=== PATIENT | female | born 1990 | race African-American/Black ===

== ENCOUNTER 2016-09-21 13:11 | Emergency (ER) | payer OTHER, SELFPAY ==
[~2016-09-21 13:11] MED LIST: Sodium Chloride 0.9% 100 ML BAG ONE
[2016-09-21] MEDS ORDERED: Iopamidol 370 76% 125 ML VIAL FS ONE (13:18)
[2016-09-21] MEDS ORDERED: Sodium Chloride 0.9% 100 ML BAG ONE (13:18)
[2016-09-21] MEDS ORDERED: methylPREDNISolone Sod Succ/PF 125 MG/2 ML VIAL ONE (14:18)
[2016-09-21] MEDS ORDERED: Piperacillin/Tazobactam 4.5 GM VIAL ONE (14:18)
[2016-09-21 14:56] LABS: ALT (SGPT) 11 U/L (8-55); AST (SGOT) 12 U/L (5-34); Albumin 3.7 g/dL (3.5-5.0); Alkaline Phosphatase 75 U/L (40-150); Anion Gap 12 mmol/L (10-20); BUN (Urea Nitrogen) 5 mg/dL (7.0-18.7); Bilirubin, Total 0.4 mg/dL (0.2-1.2); Calc. Creatinine Clearance 0 mL/min (70-130); Calcium 9.2 mg/dL (7.8-10.44); Carbon Dioxide 23 mmol/L (22-29); Chloride 107 mmol/L (98-107); Estimated GFR-MDRD Greater than 90; Globulin 3.9 g/dL (2.4-3.5); Glucose 107 mg/dL (70-105); Protein, Total 7.6 g/dL (6.0-8.3); Sodium 139 mmol/L (136-145)
[2016-09-21 15:13] LABS: Hemoglobin 11.6 g/dL (12.0-16.0); Mean Corpuscular Hemoglobin 28.7 pg (27.0-31.0); Mean Corpuscular Volume 86.9 fl (81.0-99.0); Mean Platelet Volume 9.6 fL (7.4-10.4); Platelet Count 295 thou/uL (130-400); RBC Distribution Width 12.3 % (11.5-14.5); Red Blood Cell (RBC) Count 4.05 mill/uL (4.20-5.40); White Blood Cell (WBC) Count 11.7 thou/uL (4.8-10.8)
[2016-09-21 15:14] LABS: Lymphocytes 20 % (21-51); Monocytes 5 % (0-10); Neutrophil 75 % (42-75)
[2016-09-21] MEDS ORDERED: Potassium Chloride 20 MEQ TAB ONE (15:17)
--- NOTE | 2016-09-21 15:18 | RAD ---
CHEST PA AND LATERAL: History: 26-year-old female with cough. FINDINGS: Patchy bilateral alveolar and pneumonia infiltrates noted in the right and left lower lobes, evidenc e for bibasilar pneumonia. Heart size is normal. The remainder of the lungs are clear. IMPRESSION: Bibasilar pneumonia. POS: [facility]
[2016-09-21] MEDS ORDERED: NS 0.9% w/ 20 MEQ KCL 1,000 ML ONE (17:10)
[2016-09-21] MEDS ORDERED: Potassium Chloride 20 MEQ/100 ML PREMIX BAG ONE (17:10)
--- NOTE | 2016-09-21 17:58 | CT ---
CT ANGIOGRAM OF THE CHEST WITH CONTRAST: History: Cough that started two weeks ago. Comparison: Chest radiograph, same day. Technique: CT angiogram of the chest was performed after the intravenous administration of contrast. 3D rendering provided. FINDINGS: No segmental pulmonary arterial filling defect. The exam is limited due to motion artifact and timin g of the bolus. Heart size is unremarkable. No pericardial effusion. No aneurysmal dilatation of the aorta. There is tracheobronchomegaly. There are numerous opacities in the right middle lobe, bilateral lowe r lobes, and lingula suggesting a multifocal pneumonia, aspiration is within the differential. No adenopathy of the chest. Upper abdomen demonstrates some cholelithiasis. The skeleton is unremarkable. IMPRESSION: 1. Tracheobronchomegaly along with airspace opacities in both lower lobes, right middle lobe and ezequiel gula. Findings suggest multifocal bronchial pneumonia with aspiration. 2. Extremely limited exam for embolism although there is no proximal segmental pulmonary arterial fi lling defect. POS: [facility]
== END 2016-09-21 17:35 | disposition short-term general hospital (02) ==
LOC: MADERS 13:11
DX: J18.9 Pneumonia, unspecified organism (principal); E87.6 Hypokalemia
CPT/HCPCS: 36415; 71020; 71275; 80053; 83880; 85025; 85379; 87040; 94640; 96365; 96367; 96375; J2543; J2930; J3370; J3480; J7050; J7620

== ENCOUNTER 2017-08-01 21:58 | Emergency (ER) | payer OTHER, SELFPAY ==
[~2017-08-01 21:58] MED LIST changes: +Iopamidol 370 76% 100 ML VIAL ONE; +Sodium Chloride 0.9% 1,000 ML BAG ONE; -Sodium Chloride 0.9% 100 ML BAG ONE
[2017-08-01] MEDS ORDERED: Famotidine In NaCl 20 mg/50 ml Premix Bag ONE (22:39)
[2017-08-01] MEDS ORDERED: Ondansetron HCl/PF 4 MG/2 ML Vial ONE (22:39)
[2017-08-01] MEDS ORDERED: Fentanyl 100 MCG/2 ML VIAL ONE (22:39)
[2017-08-01 22:54] LABS: Bilirubin Negative (Negative); Blood, Urine Negative (Negative); Glucose, Urine (Dipstick) Negative (Negative); Leukocyte Negative (Negative); Nitrite Negative (Negative); Protein, Urine (Dipstick) Negative (Neg-Trace); Urobilinogen 0.2 mg/dL (0.2-1.0); pH, Urine 5.5 (5.0-9.0)
[2017-08-01 23:04] LABS: Hemoglobin 13.6 g/dL (12.0-16.0); Mean Corpuscular HGB CONC 34.2 g/dL (32.0-36.0); Mean Corpuscular Hemoglobin 30.3 pg (27.0-31.0); Mean Corpuscular Volume 88.8 fl (81.0-99.0); Mean Platelet Volume 7.9 fL (7.4-10.4); Platelet Count 341 thou/uL (130-400); RBC Distribution Width 12.1 % (11.5-14.5); Red Blood Cell (RBC) Count 4.47 mill/uL (4.20-5.40); White Blood Cell (WBC) Count 7.6 thou/uL (4.8-10.8)
[2017-08-01 23:06] LABS: Clarity Hazy (Clear); Pregnancy Test - Urine (BHCG) Negative (Negative); Specific Gravity, Urine 1.029 (1.002-1.036)
[2017-08-01 23:07] LABS: Band 4 % (5-11); MDiff Complete? YES; Neutrophil 51 % (42-75)
[2017-08-01 23:07] LABS: Pregu Control Background? CLEAR/WHITE (CLR/WHITE); Pregu Control Bar Appear? YES (CONTROL BAR); Specific Gravity 1.029 (1.002-1.036)
[2017-08-01 23:08] LABS: Lymphocytes 37 % (21-51); Monocytes 8 % (0-10)
[2017-08-01 23:09] LABS: Anion Gap 13 mmol/L (10-20); BUN (Urea Nitrogen) 10 mg/dL (7.0-18.7); Calc. Creatinine Clearance 0 mL/min (70-130); Calcium 9.2 mg/dL (7.8-10.44); Carbon Dioxide 23 mmol/L (22-29); Chloride 108 mmol/L (98-107); Estimated GFR-MDRD Greater than 90; Glucose 109 mg/dL (70-105); Potassium 3.9 mmol/L (3.5-5.1); Sodium 140 mmol/L (136-145)
--- NOTE | 2017-08-02 08:53 | CT ---
CT ABDOMEN AND PELVIS WITH IV CONTRAST: Date: 08/01/17 HISTORY: Right lower quadrant abdominal pain. COMPARISON: 09/23/09. FINDINGS: The lung bases, liver, spleen, pancreas, bilateral adrenal glands, kidneys, abdominal aorta, and opac ified small bowel demonstrate a normal CT appearance. There are calcifications seen in the gallbladder, which were not present on the prior exam, consisten t with cholelithiasis. The largest gallbladder calculus measures 1.8 cm. The appendix is visualized and is normal in caliber. A T-shaped intrauterine contraceptive device is noted in place. There is a large left adnexal cystic structure measuring 5.1 cm, which may represent a large left ova jo cyst. The right ovary has a normal CT appearance. There is a trace amount of free fluid in the pelvis, whic h is probably physiologic in origin. The urinary bladder is incompletely distended. There is mass effect on the urinary bladder due to a l arge left adnexal cystic structure. IMPRESSION: 1. Large left adnexal cystic structure which may represent a large left ovarian cyst. However, given the large size, pelvic ultrasound may be helpful for further evaluation. 2. No CT evidence of appendicitis. 3. Cholelithiasis. POS: [facility]
== END 2017-08-02 00:40 | disposition home or self-care (01) ==
LOC: MADERS 21:58
DX: K80.20 Calculus of gallbladder without cholecystitis without obstruction (principal); Z79.899 Other long term (current) drug therapy
CPT/HCPCS: 36415; 74177; 80048; 81003; 81025; 82150; 85025; 96361; 96374; 96375; J2405; J3010; J7050

== ENCOUNTER 2017-08-10 08:30 | Outpatient (CLI) | payer OTHER ==
--- NOTE | 2017-08-10 11:30 | ULT ---
TRANSABDOMINAL AND TRANSVAGINAL PELVIC ULTRASOUND: Date: 08/10/17 INDICATION: History of left-sided ovarian cyst with left-sided pelvic pain. COMPARISON: Prior CT of the abdomen and pelvis dated 08/01/17. TECHNIQUE: Hill scale, color Doppler, and vascular duplex with spectral analysis was performed of the pelvis via transabdominal and transvaginal approach. FINDINGS: The uterus measures 8.8 x 4.1 x 5.7 cm. IUD is seen within the lower aspect of the endometrial canal. The endometrial stripe measures 7.0 mm. The right ovary measures 2.7 x 1.4 x 2.2 cm. There are normal follicles within the right ovary. The l eft ovary measures 4.4 x 2.7 x 2.9 cm. There are two separate cysts within the left ovary, largest me asuring up to 2.1 cm, the additional measuring 1.8 cm. No free fluid is demonstrated. IMPRESSION: 1. Interval decrease in size of large left adnexal cystic lesion seen on the comparison CT dated . This likely corresponds to a 2.1 cm residual follicular cyst within the left ovary on the curr ent exam. No free fluid is evident. 2. No evidence of ovarian torsion. 3. IUD. POS: [facility]
== END 2017-08-10 08:31 | disposition home or self-care (01) ==
LOC: MADULT 08:30
PROVIDERS: ATTEND Family Medicine
DX: N83.202 Unspecified ovarian cyst, left side (principal); Z97.5 Presence of (intrauterine) contraceptive device
CPT/HCPCS: 76856

== ENCOUNTER 2017-09-23 15:28 | Emergency (ER) | payer SELFPAY ==
[2017-09-23] MEDS ORDERED: Sulfameth/Trimethoprim DS 800-160mg TAB ONE (16:19)
[2017-09-23] MEDS ORDERED: Ibuprofen 800 MG TAB ONE (16:19)
== END 2017-09-23 16:20 | disposition home or self-care (01) ==
LOC: MADERS 15:28
DX: S50.861A Insect bite (nonvenomous) of right forearm, initial encounter (principal); Z79.899 Other long term (current) drug therapy; W57.XXXA Bitten or stung by nonvenomous insect and other nonvenomous arthropods, initial encounter
CPT/HCPCS: 99282

== ENCOUNTER 2017-09-27 19:52 | Emergency (ER) | payer SELFPAY | END 2017-09-27 21:00 | disposition left against medical advice (07) | LOC: MADERS 19:52 | DX: Z53.21 Procedure and treatment not carried out due to patient leaving prior to being seen by health care provider (principal) ==

== ENCOUNTER 2017-10-19 10:01 | Outpatient (CLI) | payer OTHER, SELFPAY ==
[2017-10-19 10:33] LABS: #Basophils 0.1 thou/uL (0.0-0.2); #Eosinphils 0.1 thou/uL (0.0-0.7); #Lymphocytes 1.5 thou/uL (1.20-3.40); #Monocytes 0.4 thou/uL (0.11-0.59); #Neutrophils 3.2 thou/uL (1.40-6.50); %Basophils 1.7 % (0.0-1.0); %Eosinophils 2.8 % (0.0-10.0); %Lymphocytes 28.7 % (21.0-51.0); %Monocytes 6.7 % (0.0-10.0); %Neutrophils 60.2 % (42.0-75.0); Hemoglobin 12.1 g/dL (12.0-16.0); Mean Corpuscular HGB CONC 32.2 g/dL (32.0-36.0); Mean Platelet Volume 7.6 fL (7.4-10.4); Platelet Count 317 thou/uL (130-400); RBC Distribution Width 11.4 % (11.5-14.5); Red Blood Cell (RBC) Count 4.32 mill/uL (4.20-5.40); White Blood Cell (WBC) Count 5.4 thou/uL (4.8-10.8)
== END 2017-10-19 10:02 | disposition home or self-care (01) ==
LOC: MADLABBHPM 10:01
PROVIDERS: ATTEND Family Medicine
DX: R53.83 Other fatigue (principal)
CPT/HCPCS: 36415; 84443; 85025

== ENCOUNTER 2018-01-25 22:58 | Emergency (ER) | payer OTHER ==
[~2018-01-25 22:58] MED LIST changes: -Iopamidol 370 76% 100 ML VIAL ONE; -Sodium Chloride 0.9% 1,000 ML BAG ONE; +Sodium Chloride 0.9% 100 ML BAG ONE
[2018-01-25] MEDS ORDERED: Magnesium Sulfate 2 GM/NS 0.9% 50 ML BAG ONE (23:36)
[2018-01-25] MEDS ORDERED: diphenhydrAMINE 50 MG/ML VIAL ONE (23:36)
[2018-01-25] MEDS ORDERED: Metoclopramide HCl 10 MG/2 ML VIAL ONE (23:36)
[2018-01-25] MEDS ORDERED: Ketorolac Tromethamine 30 MG/ML VIAL ONE (23:36)
== END 2018-01-26 01:10 | disposition home or self-care (01) ==
LOC: MADERS 22:58
DX: G43.909 Migraine, unspecified, not intractable, without status migrainosus (principal); Z79.899 Other long term (current) drug therapy
CPT/HCPCS: 96365; 96375; J1200; J1885; J2765; J3475; J7050

== ENCOUNTER 2018-03-13 14:09 | Emergency (ER) | payer OTHER ==
--- NOTE | 2018-03-13 15:09 | RAD ---
CHEST 2 VIEWS: Date: 03/13/18 INDICATION: History of cough. COMPARISON: Prior dated 09/21/16. FINDINGS: Lungs are clear. Cardiomediastinal silhouette within normal limits. No acute osseous abnormality is e vident. IMPRESSION: No acute cardiopulmonary abnormality. POS: [facility]
== END 2018-03-13 15:21 | disposition home or self-care (01) ==
LOC: MADERS 14:09
DX: J20.9 Acute bronchitis, unspecified (principal); G43.909 Migraine, unspecified, not intractable, without status migrainosus; Z79.899 Other long term (current) drug therapy
CPT/HCPCS: 71046; 94640; J7620

== ENCOUNTER 2019-01-24 11:30 | Emergency (ER) | payer SELFPAY ==
[2019-01-24 12:52] LABS: #Basophils 0.1 thou/uL (0.0-0.2); #Eosinphils 0.2 thou/uL (0.0-0.7); #Lymphocytes 1.3 thou/uL (1.20-3.40); #Monocytes 0.6 thou/uL (0.11-0.59); #Neutrophils 3.2 thou/uL (1.40-6.50); %Basophils 1.6 % (0.0-1.0); %Eosinophils 4.1 % (0.0-10.0); %Lymphocytes 24.3 % (21.0-51.0); %Monocytes 10.5 % (0.0-10.0); %Neutrophils 59.4 % (42.0-75.0); Hemoglobin 11.9 g/dL (12.0-16.0); Mean Corpuscular Hemoglobin 28.7 pg (27.0-31.0); Mean Corpuscular Volume 89.7 fL (78.0-98.0); Mean Platelet Volume 7.5 fL (7.4-10.4); Platelet Count 258 thou/uL (130-400); RBC Distribution Width 11.9 % (11.5-14.5); Red Blood Cell (RBC) Count 4.14 mill/uL (4.20-5.40); White Blood Cell (WBC) Count 5.4 thou/uL (4.8-10.8)
[2019-01-24 13:08] LABS: ALT (SGPT) 11 U/L (8-55); AST (SGOT) 12 U/L (5-34); Albumin 4.3 g/dL (3.5-5.0); Alkaline Phosphatase 63 U/L (40-110); Anion Gap 11 mmol/L (10-20); BUN (Urea Nitrogen) 6 mg/dL (7.0-18.7); Bilirubin, Total 0.2 mg/dL (0.2-1.2); Calc. Creatinine Clearance 0 mL/min (70-130); Calcium 8.9 mg/dL (7.8-10.44); Carbon Dioxide 23 mmol/L (22-29); Chloride 110 mmol/L (98-107); Estimated GFR-MDRD Greater than 90; Globulin 3.4 g/dL (2.4-3.5); Glucose 104 mg/dL (70-105); Potassium 3.8 mmol/L (3.5-5.1); Protein, Total 7.7 g/dL (6.0-8.3); Sodium 140 mmol/L (136-145)
[2019-01-24 13:25] LABS: Bilirubin Negative (Negative); Blood, Urine Negative (Negative); Clarity Clear (Clear); Glucose, Urine (Dipstick) Negative (Negative); Leukocyte Negative (Negative); Nitrite Positive (Negative); Protein, Urine (Dipstick) Negative (Neg-Trace); Urobilinogen 0.2 mg/dL (Less than 2)
[2019-01-24 13:31] LABS: Bacteria/HPF 2+ HPF (None Seen); RBC/HPF 0-3 HPF (0-3)
--- NOTE | 2019-01-24 15:57 | ULT ---
PELVIC ULTRASOUND: Transabdominal and endovaginal ultrasound performed. INDICATION: Pelvic pain. Vaginal spotting 1 week ago. Positive test 2 weeks ago. FINDINGS: There is an irregularly shaped fluid collection in the lower uterine segment at the cervical os measu ring 1.3 x 0.5 x 1.6 cm. Internal echoes are present within this collection. This may represent a d egenerating gestational sac with incomplete AB or AB in progress. Endometrial stripe in the region o f the fundus is thickened measuring up to 2 cm. Both ovaries are identified. A left ovarian cyst measures 1.0 x 1.3 cm. Color Doppler with spectral analysis demonstrates blood flow to both ovaries. IMPRESSION: Irregularly shaped fluid collection in the lower uterine segment and internal os with internal debris . Findings suggest degenerating gestational sac with in progress or incomplete . POS: [facility]
== END 2019-01-24 14:06 | disposition home or self-care (01) ==
LOC: MADERS 11:30
DX: O03.9 Complete or unspecified spontaneous abortion without complication (principal); G43.909 Migraine, unspecified, not intractable, without status migrainosus
CPT/HCPCS: 76815; 80053; 81003; 81015; 84702; 85025

== ENCOUNTER 2019-04-07 15:25 | Emergency (ER) | payer BC, OTHER ==
--- NOTE | 2019-04-07 16:06 | RAD ---
EXAM: Chest PA and lateral: HISTORY: Cough COMPARISON: none FINDINGS: Lung mcwilliams are clear. Vascular markings are normal. Heart and mediastinum appear unremarkable. Osseous structures are unremarkable. 3 metallic densities seen along the skin margin of the anterior upper right chest. IMPRESSION: Unremarkable chest
== END 2019-04-07 17:22 | disposition home or self-care (01) ==
LOC: MADERS 15:25
DX: J06.9 Acute upper respiratory infection, unspecified (principal); J42 Unspecified chronic bronchitis
CPT/HCPCS: 71046; 87804; J7620

== ENCOUNTER 2019-12-05 14:25 | Outpatient (CLI) | payer BC ==
--- NOTE | 2019-12-05 16:34 | RAD ---
2 VIEW CHEST: Date: 12/05/2019 INDICATION: Bronchitis. COMPARISON: 04/07/2019. FINDINGS: The lungs appear clear. No infiltrate identified. There is artifact which degrades the exam. IMPRESSION: No acute process identified. POS: [facility]
== END 2019-12-05 14:26 | disposition home or self-care (01) ==
LOC: MADRAD 14:25
PROVIDERS: ATTEND Family Medicine
DX: J20.9 Acute bronchitis, unspecified (principal); Z20.828 Contact with and (suspected) exposure to other viral communicable diseases
CPT/HCPCS: 71046

== ENCOUNTER 2020-05-10 14:49 | Inpatient (IN) | payer BC, SELFPAY ==
[2020-05-10 15:19] LABS: Bilirubin Negative (Negative); Blood, Urine Small (Negative); Glucose, Urine (Dipstick) Negative (Negative); Ketone, Urine Negative (Negative); Leukocyte Large (Negative); Nitrite Negative (Negative); Protein, Urine (Dipstick) Trace mg/dL (Neg-Trace); Specific Gravity, Urine 1.015 (1.005-1.030); Urobilinogen 0.2 mg/dL (Less than 2); pH, Urine 5.5 (5.0-9.0)
[2020-05-10 15:20] LABS: Clarity Cloudy (Clear); Pregnancy Test - Urine (BHCG) Negative (Negative)
[2020-05-10 15:21] LABS: Pregu Control Background? CLEAR/WHITE (CLR/WHITE); Pregu Control Bar Appear? YES (CONTROL BAR); Specific Gravity 1.015 (1.002-1.036)
[2020-05-10 15:23] LABS: WBC/HPF Greater Than 50 HPF (0-3)
[2020-05-10 15:24] LABS: Bacteria/HPF Rare-Few HPF (None Seen); RBC/HPF 0-3 HPF (0-3)
[2020-05-10] MEDS ORDERED: Levofloxacin 500 mg/D5W 100 ml Premix Bag ONE (15:37)
[2020-05-10] MEDS ORDERED: Sodium Chloride 0.9% 1,000 ML ONE ×2 (15:37→17:14)
[2020-05-10] MEDS ORDERED: Morphine 4 MG/ML VIAL ONE (15:37)
[2020-05-10 16:00] LABS: ALT (SGPT) 15 U/L (8-55); AST (SGOT) 16 U/L (5-34); Albumin 4.3 g/dL (3.5-5.0); Alkaline Phosphatase 70 U/L (40-110); Anion Gap 17 mmol/L (10-20); BUN (Urea Nitrogen) 6 mg/dL (7.0-18.7); Bilirubin, Total 0.6 mg/dL (0.2-1.2); Calc. Creatinine Clearance 0 mL/min (70-130); Calcium 8.8 mg/dL (7.8-10.44); Carbon Dioxide 17 mmol/L (22-29); Chloride 108 mmol/L (98-107); Globulin 3.3 g/dL (2.4-3.5); Glucose 103 mg/dL (70-105); Potassium 3.6 mmol/L (3.5-5.1); Protein, Total 7.6 g/dL (6.0-8.3); Sodium 138 mmol/L (136-145)
[2020-05-10 16:02] LABS: Hemoglobin 12.6 g/dL (12.0-16.0); Mean Corpuscular HGB CONC 32.4 g/dL (32.0-36.0); Mean Corpuscular Hemoglobin 29.2 pg (27.0-31.0); Mean Corpuscular Volume 90.1 fL (78.0-98.0); Mean Platelet Volume 9.3 fL (7.4-10.4); Platelet Count 239 thou/uL (130-400); RBC Distribution Width 11.2 % (11.5-14.5); Red Blood Cell (RBC) Count 4.32 mill/uL (4.20-5.40); White Blood Cell (WBC) Count 13.5 thou/uL (4.8-10.8)
[2020-05-10 16:03] LABS: Band 2 % (5-11); Lymphocytes 3 % (21-51); MDiff Complete? YES; Monocytes 9 % (0-10); Neutrophil 79 % (42-75); Platelet Morphology Comment Appears Adequate; RBC Morphology Normal; Reactive Lymphocytes 7 % (0-10)
[2020-05-10] MEDS ORDERED: Ketorolac Tromethamine 30 MG/ML VIAL ONE (16:09)
[2020-05-10 17:58] VITALS: BMI 29.7
[2020-05-10] MEDS ORDERED: Acetaminophen 325 MG TAB PO PRN (19:13)
[2020-05-10] MEDS ORDERED: HYDROcodone/Acetaminophen 5/325 mg Tablet PO PRN (19:14)
[2020-05-10] MEDS ORDERED: Ondansetron ODT 4 MG TAB SL PRN (19:15)
[2020-05-10] MEDS: HYDROcodone/Acetaminophen 5/325 mg Tablet PO PRN (20:07)
[2020-05-11] MEDS: Sodium Chloride 0.9% 1,000 ML IV SCH ×3 (01:42→18:16)
[2020-05-11 02:32] LABS: SARS-CoV-2 PCR by NAA Not Detected (NotDetected)
[2020-05-11] MEDS: HYDROcodone/Acetaminophen 5/325 mg Tablet PO PRN ×2 (05:40→12:12)
[2020-05-11 06:05] LABS: Anion Gap 11 mmol/L (10-20); BUN (Urea Nitrogen) 6 mg/dL (7.0-18.7); Calc. Creatinine Clearance 142 mL/min (70-130); Calcium 7.8 mg/dL (7.8-10.44); Carbon Dioxide 21 mmol/L (22-29); Chloride 110 mmol/L (98-107); Glucose 100 mg/dL (70-105); Potassium 3.6 mmol/L (3.5-5.1); Sodium 138 mmol/L (136-145)
[2020-05-11 06:06] LABS: #Lymphocytes 1.2 thou/uL (1.20-3.40); #Monocytes 1.4 thou/uL (0.11-0.59); #Neutrophils 11.3 thou/uL (1.40-6.50); %Basophils 0.3 % (0.0-1.0); %Eosinophils 0.1 % (0.0-10.0); %Lymphocytes 8.3 % (21.0-51.0); %Monocytes 9.8 % (0.0-10.0); %Neutrophils 81.4 % (42.0-75.0); Hemoglobin 10.7 g/dL (12.0-16.0); Mean Corpuscular HGB CONC 32.1 g/dL (32.0-36.0); Mean Corpuscular Hemoglobin 29.2 pg (27.0-31.0); Mean Platelet Volume 8.8 fL (7.4-10.4); Platelet Count 216 thou/uL (130-400); RBC Distribution Width 11.2 % (11.5-14.5); Red Blood Cell (RBC) Count 3.67 mill/uL (4.20-5.40); White Blood Cell (WBC) Count 13.8 thou/uL (4.8-10.8)
[2020-05-11] MEDS: Famotidine 20 MG TAB PO SCH ×2 (09:23→20:38)
[2020-05-11] MEDS: TOPIRAMATE 50 MG PO SCH (20:35)
[2020-05-12] MEDS: HYDROcodone/Acetaminophen 5/325 mg Tablet PO PRN (00:40)
[2020-05-12] MEDS: Sodium Chloride 0.9% 1,000 ML IV SCH ×4 (02:02→19:59)
[2020-05-12] MEDS: Famotidine 20 MG TAB PO SCH ×2 (08:37→20:00)
--- NOTE | 2020-05-12 08:56 | HP ---
REASON FOR ADMISSION/CHIEF COMPLAINT: Acute pyelonephritis. HISTORY OF PRESENT ILLNESS: The patient is a 29-year-old -[place] female who presented to the emergency room due to a 4-day history of UTI. The patient does have a history of recurrent urinary tract infection. She states she is an [employer] and says that she has to hold her urine for long periods of time and this typically happens when she gets UTI. The patient states her symptoms started about 4 days ago. She denies any blood in her urine. She denies any vaginal discharge or bleeding. The patient complains of nausea, abdominal pain, and left lower back pain. The patient denies any chest pain, denies any dizziness, denies any vomiting. She states she has been trying to hydrate and take some ibuprofen at home. Upon further evaluation of patient in the emergency room, the patient was noted to have a temperature of 100.3. Her heart rate was 112, respirations 20, and blood pressure 117/82 with an oxygen sat of 100% on room air. The patient had further workup, which shows elevated white count and pulse greater than 90. The patient was given IV fluids in the emergency room. She was given Toradol for analgesia, morphine for analgesia. She was started on Levaquin as she is allergic to penicillin. The decision was made to admit the patient due to meeting sepsis criteria with at least 2 SIRS criteria, which included elevated white blood cell count and also a pulse greater than 90. Upon evaluation of patient, she appears to be in distress. The patient is tearful due to left lower back pain. She states she still has some nausea but denies any chest pain or palpitations or dizziness. The patient denies any vomiting. PAST MEDICAL HISTORY: Migraines. PAST SURGICAL HISTORY: Cholecystectomy in August 2017 and x4. SOCIAL HISTORY: Patient lives at home with family. She denies alcohol use. She denies any illicit drug use. She denies any smoking history. ALLERGIES: THE PATIENT IS ALLERGIC TO PENICILLIN. MEDICATIONS: The patient takes Topamax 50 mg once a day. CODE STATUS: Patient has a full code. REVIEW OF SYSTEMS: CONSTITUTIONAL: The patient denies lethargy. Denies malaise. EYES: The patient denies any eye pain, photophobia or vision changes. ENT: The patient denies any ear, nose, or throat pain. CARDIOVASCULAR: The patient denies any chest pain, dizziness or lower extremity edema. RESPIRATORY: Patient denies any cough, shortness of breath. GASTROINTESTINAL: The patient complains of abdominal pain. GENITOURINARY: The patient complains of dysuria, frequency and urgency. The patient denies any vaginal bleeding, vaginal itching or urinary incontinence. MUSCULOSKELETAL: The patient denies any back pain or arthralgias. SKIN: Patient denies any pruritus or rashes. NEUROLOGIC: The patient denies any focal weakness, gait changes or speech changes. ENDOCRINE: The patient complains of polyuria. PHYSICAL EXAMINATION: VITAL SIGNS: Temperature 100.3, pulse 96, respirations 17, O2 sat 100% on room air. Blood pressure 110/74. GENERAL: The patient is alert, awake, oriented x3. Leaning in bed in apparent distress due to pain. Patient tearful. HEENT: Head normocephalic, atraumatic. Eyes, normal exam. Sclerae normal. No periorbital ecchymosis. No periorbital edema. ENT: Ears, nose, and throat normal. Tonsil exam normal. No enlargement or exudate noted. Mouth, oral mucous membranes moist. NECK: Supple. Trachea midline. RESPIRATORY: Clear to auscultation bilaterally. CARDIOVASCULAR: The patient does have tachycardia other than that it is regular rate. S1, S2. No murmurs. ABDOMEN: Positive for suprapubic tenderness. Positive for CVA tenderness bilaterally but worse on the left. EXTREMITIES: Upper and lower extremities with no edema or abrasions. NEUROLOGIC: Cranial nerves II through XII grossly intact. No focal deficit. SKIN: Normal in color. Normal rash. LABORATORY DATA: WBC 13.5, hemoglobin 12.6, hematocrit 38.9, platelets 239. Urine, trace protein, cloudy clarity, large leukocytes, small blood, greater than 50 wbc, and 7 to 10 squamous epithelial cells. COVID not detected. Sodium 138, potassium 3.6, chloride 108, carbon dioxide 17, BUN 6, creatinine 0.84, glucose 103, calcium 8.8, AST 16, ALT 50, alkaline phosphatase 70. Lactic acid 1.3. Total protein 7.6. Blood cultures pending. RSV negative. Urine culture pending. ASSESSMENT: 1. Acute pyelonephritis. 2. Tachycardia. 3. Mild leukocytosis. PLAN: The patient is a 29-year-old -[place] female who has been admitted to [facility] for observation due to acute pyelonephritis. We will continue patient on daily IV Levaquin. We will follow up urine culture and blood culture. We will continue the patient on normal saline at 125 mL/hour. We will continue on home medications, Topamax. We will place the patient on 4 mg of sublingual Zofran for nausea and vomiting. We will continue the patient on [place] p.r.n. q.4 hours for pain. We will encourage increase oral hydration and we will monitor patient closely for any dynamic instability. ESTIMATED LENGTH STAY: 1 to 2 days. TIME SPENT: Estimated length of time used to prepare for this H and P was greater than 55 minutes. Job ID: [id number] MTDD
[2020-05-12] MEDS ORDERED: SUMAtriptan Succinate 6 MG/0.5 ML VIAL SC PRN (10:58)
[2020-05-12] MEDS ORDERED: Ketorolac Tromethamine 30 MG/ML VIAL IVP PRN (11:02)
[2020-05-12] MEDS ORDERED: cefTRIAXone\\ROCEPHIN 1 GM in Sodium Chloride 0.9% 100 ML IVPB SCH (12:00)
[2020-05-12] MEDS: diphenhydrAMINE 25 MG CAP PO PRN ×2 (13:15→20:11)
[2020-05-12] MEDS ORDERED: Fioricet 325/50/40 mg Tablet PO PRN ×2 (13:50→16:30)
[2020-05-12] MEDS: TOPIRAMATE 50 MG PO SCH (23:48)
[2020-05-13] MEDS: HYDROcodone/Acetaminophen 5/325 mg Tablet PO PRN (05:28)
[2020-05-13 05:40] LABS: #Eosinphils 0.1 thou/uL (0.0-0.7); #Lymphocytes 1.3 thou/uL (1.20-3.40); #Monocytes 0.7 thou/uL (0.11-0.59); #Neutrophils 3.5 thou/uL (1.40-6.50); %Basophils 0.8 % (0.0-1.0); %Eosinophils 1.3 % (0.0-10.0); %Lymphocytes 22.7 % (21.0-51.0); %Monocytes 12.2 % (0.0-10.0); Anion Gap 12 mmol/L (10-20); BUN (Urea Nitrogen) Less than 4 mg/dL (7.0-18.7); Calc. Creatinine Clearance 153 mL/min (70-130); Carbon Dioxide 20 mmol/L (22-29); Chloride 112 mmol/L (98-107); Glucose 115 mg/dL (70-105); Hemoglobin 10.5 g/dL (12.0-16.0); Mean Corpuscular HGB CONC 33.1 g/dL (32.0-36.0); Mean Corpuscular Hemoglobin 29.8 pg (27.0-31.0); Mean Platelet Volume 8.5 fL (7.4-10.4); Platelet Count 209 thou/uL (130-400); Potassium 3.5 mmol/L (3.5-5.1); RBC Distribution Width 11.1 % (11.5-14.5); Red Blood Cell (RBC) Count 3.52 mill/uL (4.20-5.40); Sodium 140 mmol/L (136-145); White Blood Cell (WBC) Count 5.5 thou/uL (4.8-10.8)
[2020-05-13] MEDS: diphenhydrAMINE 25 MG CAP PO PRN (05:43)
[2020-05-13] MEDS: Famotidine 20 MG TAB PO SCH (08:09)
[2020-05-13] MEDS ORDERED: cefTRIAXone\\ROCEPHIN 1 GM in Sodium Chloride 0.9% 100 ML IVPB SCH (10:30)
[2020-05-13 11:36] VITALS: BP 134/86; TEMP 98
[2020-05-13] MEDS ORDERED: Nitrofurantoin Monohyd/M-Cryst 100 MG CAP PO SCH (21:00)
--- NOTE | 2020-05-15 00:55 | DIS ---
DATE OF ADMISSION: 05/12/2020 DATE OF DISCHARGE: 05/13/2020 ADMITTING, DISCHARGING, AND PRIMARY CARE PHYSICIAN: Rose Smith MD DISCHARGE INSTRUCTIONS: Back to her home. DISCHARGE ACTIVITY: Patient advised to complete oral antibiotics x5 more days. Patient advised to follow up with PCP in 3 days. Patient advised to increase hydration. Patient advised to not hold urine for long periods of times any longer. DISCHARGE MEDICATIONS: 1. Topiramate 50 mg daily. 2. Hydrocodone 5/325 one tab q.4 p.r.n., #30. 3. Macrobid 100 mg one tab b.i.d. x5 days. 4. Fioricet 2 tabs q.6 hours p.r.n. for headaches, #60. BRIEF HOSPITAL STAY: The patient is a 29-year-old female, who was initially admitted to the observation unit on the th of April 2020. The patient had presented to the emergency room due to a 4-day history of urinary tract infection. She states she has history of recurrent urinary tract infection and she started having symptoms of dysuria, urinary frequency, and urgency, but she did not do anything about it until it progressively worsened to nausea, abdominal pain, and severe left lower back pain. The patient presented to the emergency room. She was noted to have a temperature of 100.3, heart rate of 112 and urine confirmed urinary tract infection. WBCs were elevated and she was noted to meet the criteria for SIRS. The patient was started on IV fluids, normal saline at 125 mL/hour. She was given IV Levaquin as she is allergic to penicillin and she was given Toradol and morphine for anesthesia. The decision was made to admit the patient to the observation floor for IV fluids, IV antibiotics and transitioned to p.o. medications. Upon admission to the medical floor on observation, the patient continued to have severe lower back pain. By day #2, the patient stated that she noted very minimal difference in the lower back pain, but dysuria and frequency were much improved. Unfortunately, by the third dose of the Levaquin, patient had an allergic reaction to it. She developed a cough and she had extensive swelling of bilateral upper eyelids. The decision was made to stop the Levaquin. The patient was treated with IM Depo-Medrol, oral Benadryl, and Levaquin was switched to IV Rocephin. She was transferred from the [facility] care to acute care on the April. The patient tolerated Rocephin nicely, fever stopped and WBC decreased to 5.5 from 13.8. The eye swelling improved. The patient's urine culture confirmed urinary tract infection, acute pyelonephritis with E. coli. The patient was then subsequently switched to oral antibiotic, Macrobid, twice a day for 5 days. The patient does also have a history of migraines and during hospitalization, she had 2 episodes of migraines. For this reason, she was started on Fioricet, which the patient stated that this helped significantly. The patient was subsequently discharged home in a stable condition. DISCHARGE VITAL SIGNS: Temperature 98.0, pulse 82, respirations 18, O2 sats 100% on room air, blood pressure 134/86. The patient is a full code. No known drug allergies. DISCHARGE DIAGNOSES: 1. Acute pyelonephritis. 2. Leukocytosis, most likely secondary to #1. 3. Migraine headache without aura. TIME SPENT: Total time used to prepare for this discharge and evaluate patient was greater than 45 minutes. Job ID: [id number] MTDD
--- NOTE | 2020-05-18 06:25 | PQF ---
CLINICAL DOCUMENTATION CLARIFICATION FORM: Dear : Rose Smith Date / Time: 05/18/2020 Please exercise your independent, professional judgment in responding to the clarification form. Clinical indicators are provided on the bottom of this form for your review Please check appropriate box(es): [ x ] Sepsis [ ] Localized infection without sepsis [ ] SIRS due to non-infectious process (please specify etiology) [ ] with organ dysfunction [ ] without organ dysfunction [ ] Other diagnosis [ ] Unable to determine In addition, please specify: Present on Admission (POA): [ x ] Yes [ ] No [ ] Unable to determine To be completed by CDI/Coding staff for physician review: Present Clinical Indicators - Signs / Symptoms / Labs Results and Location in Medical Record [ x ] Patient was found to have acute pyelonephritis and also meting sepsis criteria with at least 2 of the SIRS criteria ED provider notes [ x ] Given the patient's vital signs and meeting criteria for sepsis, patient was admitted after initial dose of antibiotics and IV fluids ED provider notes [ x ] Respiratory rate 20. Pulse rates were 112, 127, 113, 104 and 102. Temperature is 100.3 ED provider notes [ x ] WBCs were 13.5 and 13.8 Laboratory [ x ] Decision was made to admit the patient due to meeting sepsis criteria with at least SIRS criteria which included elevated WBC and pulse greater than 90 H and P Present Risk Factors Results and Location in Medical Record [ x ] Acute pyelonephritis, recent history of UTI H and P Present Treatments Results and Location in Medical Record [ x ] IV Levaquin 05/12-05/13 Medications [ x ] IV Rocephin 05/12-05/13 Medications [ x ] IV ?uids 05/12-05/13 Medications [ x ] Daily CBCs Medications CDS/Customer Support Consultant Signature: [id number] Phone #: Date/Time: 05/18/2020 This is a permanent part of the Medical Record [facility]
== END 2020-05-13 11:40 | disposition home or self-care (01) | DRG 872 ==
LOC: MADERS 14:49 → MADMS 17:31 → OBSVTOIN 05-12 10:30
PROVIDERS: ADMIT Family Medicine; ATTEND Family Medicine
DX: A41.9 Sepsis, unspecified organism (principal); N10 Acute pyelonephritis; G43.909 Migraine, unspecified, not intractable, without status migrainosus; Z20.822 Contact with and (suspected) exposure to COVID-19; B96.20 Unspecified Escherichia coli [E. coli] as the cause of diseases classified elsewhere; Z88.0 Allergy status to penicillin; Z90.49 Acquired absence of other specified parts of digestive tract
CPT/HCPCS: 80048; 80053; 81003; 81015; 81025; 83605; 85025; 87040; 87077; 87086; 87149; 87186; 87635; 96361; 96365; 96366; 96375; G0378; J0696; J1040; J1885; J1956; J2270; J3490; J7050; Q0162; Q0163; U0003; U0005

== ENCOUNTER 2020-12-19 19:07 | Emergency (ER) | payer OTHER, SELFPAY ==
[2020-12-19] MEDS ORDERED: Ondansetron PF 4 MG/2 ML Vial ONE (20:42)
[2020-12-19] MEDS ORDERED: Ketorolac Tromethamine 30 MG/ML VIAL ONE (20:42)
== END 2020-12-19 21:50 | disposition home or self-care (01) ==
LOC: MADERS 19:07
DX: S13.4XXA Sprain of ligaments of cervical spine, initial encounter (principal); S40.011A Contusion of right shoulder, initial encounter; J42 Unspecified chronic bronchitis; V43.52XA Car driver injured in collision with other type car in traffic accident, initial encounter; Y92.410 Unspecified street and highway as the place of occurrence of the external cause
CPT/HCPCS: 70450; 72125; 96374; 96375; J1885; J2405

== ENCOUNTER 2020-12-21 11:15 | Outpatient (CLI) | payer BC | END 2020-12-21 11:16 | disposition home or self-care (01) | LOC: MADLAB 11:15 → MADRAD 11:16 | PROVIDERS: ATTEND Family Medicine | DX: M25.551 Pain in right hip (principal) ==

== ENCOUNTER 2021-06-14 12:10 | Outpatient (CLI) | payer OTHER | END 2021-06-14 12:11 | disposition home or self-care (01) | LOC: MADRAD 12:10 | PROVIDERS: ATTEND Family Medicine | DX: J20.9 Acute bronchitis, unspecified (principal); R06.00 Dyspnea, unspecified | CPT/HCPCS: 71046 ==

== ENCOUNTER 2021-09-12 08:35 | Outpatient (CLI) | payer OTHER | END 2021-09-12 08:36 | disposition home or self-care (01) | LOC: MADLAB 08:35 → MADRAD 08:36 | PROVIDERS: ATTEND Family Medicine | DX: M54.41 Lumbago with sciatica, right side (principal) | CPT/HCPCS: 72100 ==

== ENCOUNTER 2022-10-16 16:02 | Emergency (ER) | payer OTHER ==
[2022-10-16] MEDS ORDERED: Sodium Chloride 0.9% 1,000 ML ONE (16:24)
[2022-10-16] MEDS ORDERED: Ondansetron PF 4 MG/2 ML Vial ONE (16:24)
[2022-10-16 16:58] LABS: #Basophils 0.1 thou/uL (0.0-0.2); #Lymphocytes 2.6 thou/uL (1.20-3.40); #Monocytes 0.8 thou/uL (0.11-0.59); #Neutrophils 6.4 thou/uL (1.40-6.50); %Basophils 1.3 % (0.0-1.0); %Eosinophils 0.4 % (0.0-10.0); %Lymphocytes 25.7 % (21.0-51.0); %Neutrophils 64.5 % (42.0-75.0); Hemoglobin 12.3 g/dL (12.0-16.0); Mean Corpuscular Hemoglobin 29.8 pg (27.0-31.0); Mean Corpuscular Volume 93.1 fl (78.0-98.0); Platelet Count 308 10x3/uL (130-400); RBC Distribution Width 12.3 % (11.5-14.5); Red Blood Cell (RBC) Count 4.12 mill/uL (4.20-5.40)
[2022-10-16 17:08] LABS: ALT (SGPT) 13 U/L (8-55); AST (SGOT) 13 U/L (5-34); Alkaline Phosphatase 48 U/L (40-110); Anion Gap 10 mmol/L (10-20); BUN (Urea Nitrogen) 7 mg/dL (7.0-18.7); Bilirubin, Total 0.2 mg/dL (0.2-1.2); Calc. Creatinine Clearance 0 mL/min (70-130); Carbon Dioxide 22 mmol/L (22-29); Chloride 105 mmol/L (98-107); Estimated GFR 119; Globulin 3.2 g/dL (2.4-3.5); Glucose 78 mg/dL (70-105); Potassium 3.7 mmol/L (3.5-5.1); Protein, Total 7.2 g/dL (6.0-8.3); Sodium 133 mmol/L (136-145)
[2022-10-16 17:26] LABS: SARS-CoV-2 NAA Rapid Test Not Detected (NotDetected)
[2022-10-16 17:30] LABS: Bilirubin Negative (Negative); Blood, Urine Negative (Negative); Clarity Slightly Cloudy (Clear); Glucose, Urine (Dipstick) Negative (Negative); Ketone, Urine Negative (Negative); Leukocyte Trace (Negative); Nitrite Positive (Negative); Protein, Urine (Dipstick) 30 mg/dL (Neg-Trace); Specific Gravity, Urine 1.025 (1.005-1.030); Urobilinogen 0.2 mg/dL (Less than 2)
[2022-10-16 17:32] LABS: Pregnancy Test - Urine (BHCG) POSITIVE (Negative); Pregu Control Background? CLEAR/WHITE (CLR/WHITE); Pregu Control Bar Appear? YES (CONTROL BAR); Specific Gravity 1.025 (1.002-1.036)
[2022-10-16 17:33] LABS: CAUTI Indications for Culture Pregnancy
[2022-10-16 17:34] LABS: Urine Culture Reflex Yes Yes
[2022-10-16 17:44] LABS: Bacteria/HPF 4+ HPF (None Seen); RBC/HPF 0-3 HPF (0-3)
== END 2022-10-16 18:03 | disposition home or self-care (01) ==
LOC: MADERS 16:02
DX: O99.891 Other specified diseases and conditions complicating pregnancy (principal); R11.0 Nausea; O23.41 Unspecified infection of urinary tract in pregnancy, first trimester; N39.0 Urinary tract infection, site not specified; O99.511 Diseases of the respiratory system complicating pregnancy, first trimester; J42 Unspecified chronic bronchitis; Z3A.01 Less than 8 weeks gestation of pregnancy; Z20.822 Contact with and (suspected) exposure to COVID-19
CPT/HCPCS: 80053; 81001; 81025; 85025; 87077; 87086; 87804; 96374; J2405; J7050; U0002

== ENCOUNTER 2022-11-24 19:48 | Emergency (ER) | payer BC, OTHER | END 2022-11-24 20:55 | disposition home or self-care (01) | LOC: MADERS 19:48 | DX: O99.612 Diseases of the digestive system complicating pregnancy, second trimester (principal); K59.00 Constipation, unspecified; Z3A.15 15 weeks gestation of pregnancy | CPT/HCPCS: 99283 ==

== ENCOUNTER 2023-03-31 16:28 | Emergency (ER) | payer BC, OTHER ==
[2023-03-31] MEDS ORDERED: Sodium Chloride 0.9% 1,000 ML ONE (17:11)
[2023-03-31 17:26] LABS: BHCG - Serum POSITIVE (NEGATIVE); Pregs Control Background? CLEAR/WHITE (CLR/WHITE); Pregs Control Bar Appear? YES (CONTROL BAR)
[2023-03-31 17:37] LABS: ALT (SGPT) 20 U/L (8-55); AST (SGOT) 34 U/L (5-34); Alkaline Phosphatase 165 U/L (40-110); Anion Gap 17 mmol/L (10-20); BUN (Urea Nitrogen) Less than 4 mg/dL (7.0-18.7); Bilirubin, Total 0.6 mg/dL (0.2-1.2); Calc. Creatinine Clearance 0 mL/min (70-130); Calcium 8.4 mg/dL (7.8-10.44); Carbon Dioxide 18 mmol/L (22-29); Chloride 106 mmol/L (98-107); Estimated GFR 120; Globulin 2.9 g/dL (2.4-3.5); Glucose 120 mg/dL (70-105); Protein, Total 5.9 g/dL (6.0-8.3); Sodium 139 mmol/L (136-145)
[2023-03-31 17:42] LABS: Band 12 % (5-11); Eosinophils 2 % (0-10); Hematocrit 30.7 % (36.0-47.0); Hemoglobin 9.9 g/dL (12.0-16.0); Hypochromia SLIGHT = 6-15 cells (100X) (0-5/hpf); Lymphocytes 7 % (21-51); MDiff Complete? YES; Mean Corpuscular HGB CONC 32.1 g/dL (32.0-36.0); Mean Corpuscular Hemoglobin 28.5 pg (27.0-31.0); Mean Platelet Volume 9.9 fL (7.4-10.4); Monocytes 4 % (0-10); Neutrophil 67 % (42-75); Platelet Count 223 10x3/uL (130-400); Polychromasia SLIGHT = 2-3 cells (100X) (0-2/hpf); RBC Distribution Width 13.3 % (11.5-14.5); Red Blood Cell (RBC) Count 3.46 mill/uL (4.20-5.40); White Blood Cell (WBC) Count 9.6 10x3/uL (4.8-10.8)
[2023-03-31 17:43] LABS: Manual Diff?? YES; Platelet Adequacy Comment Appears Adequate; Reactive Lymphocytes 8 % (0-10)
[2023-03-31 17:49] LABS: SARS-CoV-2 NAA Rapid Test Not Detected (NotDetected)
[2023-03-31 17:51] LABS: Potassium 2.3 mmol/L (3.5-5.1)
[2023-03-31 17:59] LABS: Bilirubin Negative (Negative); Blood, Urine Negative (Negative); Clarity Clear (Clear); Glucose, Urine (Dipstick) Negative (Negative); Ketone, Urine Trace mg/dL (Negative); Leukocyte Negative (Negative); Nitrite Negative (Negative); Protein, Urine (Dipstick) Negative (Neg-Trace); Urobilinogen 0.2 mg/dL (Less than 2)
[2023-03-31] MEDS ORDERED: Potassium Chloride 20 MEQ TAB ONE (18:08)
[2023-03-31 18:10] LABS: Bacteria/HPF Rare-Few HPF (None Seen); CAUTI Indications for Culture Pelvic or flank pain; RBC/HPF None Seen HPF (0-3); Urine Culture Reflex No No; WBC/HPF 0-3 HPF (0-3)
[2023-03-31 18:18] LABS: Magnesium 1.4 mg/dL (1.6-2.6)
[2023-03-31] MEDS ORDERED: Sodium Chloride 0.9% 100 ML ONE (18:20)
[2023-03-31] MEDS ORDERED: Cefepime 2 GM VIAL ONE (18:20)
[2023-03-31] MEDS ORDERED: Potassium Chloride 20 MEQ/100 ML PREMIX BAG ONE (18:28)
[2023-03-31] MEDS ORDERED: Magnesium Oxide 400 MG TAB ONE (18:43)
[2023-03-31] MEDS ORDERED: Vancomycin 1 GM VIAL ONE (19:02)
[2023-03-31] MEDS ORDERED: Sodium Chloride 0.9% 250 ML 250 ML ONE (19:02)
[2023-03-31] MEDS ORDERED: Oseltamivir 75 MG CAP ONE (19:02)
[2023-03-31 20:01] LABS: Lactic Acid 3.4 mmol/L (0.5-2.2)
[2023-03-31] MEDS ORDERED: Acetaminophen 500 MG TAB ONE (20:35)
== END 2023-03-31 21:37 | disposition short-term general hospital (02) ==
LOC: MADERS 16:28
DX: J10.1 Influenza due to other identified influenza virus with other respiratory manifestations (principal); A41.9 Sepsis, unspecified organism; J04.0 Acute laryngitis; Z53.9 Procedure and treatment not carried out, unspecified reason
CPT/HCPCS: 71045; 80053; 81001; 83605; 83735; 84703; 85025; 87040; 87081; 87086; 87430; 87804; 96365; 96366; 96367; 96368; J0692; J3370; J3480; J3490; J7050; U0002

== ENCOUNTER 2024-03-27 23:58 | Emergency (ER) | payer OTHER ==
[2024-03-28] MEDS ORDERED: Ketorolac Tromethamine 30 MG (1 mL) VIAL ONE (00:36)
[2024-03-28] MEDS ORDERED: Acetaminophen 500 MG TAB ONE (00:36)
[2024-03-28] MEDS ORDERED: Sodium Chloride 0.9% 1,000 ML ONE (00:37)
[2024-03-28 00:53] LABS: BHCG - Serum Negative (NEGATIVE); Pregs Control Background? CLEAR/WHITE (CLR/WHITE); Pregs Control Bar Appear? YES (CONTROL BAR)
[2024-03-28 00:55] LABS: Band 9 % (5-11); Eosinophils 3 % (0-10); Hematocrit 32.4 % (36.0-47.0); Hemoglobin 10.3 g/dL (12.0-16.0); Lymphocytes 5 % (21-51); MDiff Complete? YES; Mean Corpuscular HGB CONC 31.9 g/dL (32.0-36.0); Mean Corpuscular Hemoglobin 27.4 pg (27.0-31.0); Mean Corpuscular Volume 85.9 fl (78.0-98.0); Mean Platelet Volume 8.3 fL (7.4-10.4); Monocytes 7 % (0-10); Neutrophil 76 % (42-75); Platelet Count 344 10x3/uL (130-400); Red Blood Cell (RBC) Count 3.77 mill/uL (4.20-5.40)
[2024-03-28 00:59] LABS: ALT (SGPT) 25 U/L (8-55); AST (SGOT) 21 U/L (5-34); Albumin 3.1 g/dL (3.5-5.0); Alkaline Phosphatase 88 U/L (40-110); Anion Gap 13 mmol/L (10-20); BUN (Urea Nitrogen) 6 mg/dL (7.0-18.7); Bilirubin, Total 0.5 mg/dL (0.2-1.2); Calc. Creatinine Clearance 0 mL/min (70-130); Calcium 8.8 mg/dL (7.8-10.44); Carbon Dioxide 25 mmol/L (22-29); Chloride 103 mmol/L (98-107); Estimated GFR 97; Globulin 4.5 g/dL (2.4-3.5); Glucose 141 mg/dL (70-105); Protein, Total 7.6 g/dL (6.0-8.3); Sodium 138 mmol/L (136-145)
[2024-03-28 01:04] LABS: Critical Call Chemistry ERS.JD @ 0103; Potassium 2.5 mmol/L (3.5-5.1)
[2024-03-28] MEDS ORDERED: Potassium Chloride 20 MEQ TAB ONE ×2 (01:12→07:59)
[2024-03-28] MEDS ORDERED: Azithromycin 500 MG VIAL ONE (01:12)
[2024-03-28] MEDS ORDERED: cefTRIAXone (ROCEPHIN) 1 GM VIAL ONE (01:12)
[2024-03-28] MEDS ORDERED: Sodium Chloride 0.9% 100 ML ONE (01:12)
[2024-03-28] MEDS ORDERED: Sodium Chloride 0.9% 250 ML 250 ML ONE (01:13)
[2024-03-28 01:37] LABS: Magnesium 1.3 mg/dL (1.6-2.6)
[2024-03-28] MEDS ORDERED: Magnesium 2 GM/50 ML BAG (IN WATER) ONE (01:45)
[2024-03-28] MEDS ORDERED: Potassium Chloride 20 MEQ (100 mL) BAG ONE (02:20)
[2024-03-28 04:13] LABS: Bilirubin Negative (Negative); Blood, Urine Negative (Negative); Clarity Clear (Clear); Glucose, Urine (Dipstick) Negative (Negative); Ketone, Urine Trace mg/dL (Negative); Leukocyte Negative (Negative); Nitrite Negative (Negative); Protein, Urine (Dipstick) 30 mg/dL (Neg-Trace); pH, Urine 6.5 (5.0-9.0)
[2024-03-28 04:14] LABS: CAUTI Indications for Culture Alt mental st,lethar; RBC/HPF None Seen HPF (0-3); Urine Culture Reflex No No; WBC/HPF 0-3 HPF (0-3)
[2024-03-28 06:29] LABS: Band 3 % (5-11); Hematocrit 26.6 % (36.0-47.0); Hemoglobin 8.6 g/dL (12.0-16.0); Lymphocytes 11 % (21-51); MDiff Complete? YES; Mean Corpuscular HGB CONC 32.3 g/dL (32.0-36.0); Mean Corpuscular Hemoglobin 27.2 pg (27.0-31.0); Mean Corpuscular Volume 84.3 fl (78.0-98.0); Mean Platelet Volume 7.9 fL (7.4-10.4); Monocytes 5 % (0-10); Neutrophil 81 % (42-75); Platelet Count 301 10x3/uL (130-400); RBC Distribution Width 12.7 % (11.5-14.5); Red Blood Cell (RBC) Count 3.16 mill/uL (4.20-5.40); White Blood Cell (WBC) Count 14.5 10x3/uL (4.8-10.8)
[2024-03-28 06:33] LABS: ALT (SGPT) 20 U/L (8-55); AST (SGOT) 15 U/L (5-34); Albumin 2.5 g/dL (3.5-5.0); Alkaline Phosphatase 72 U/L (40-110); Anion Gap 13 mmol/L (10-20); BUN (Urea Nitrogen) 6 mg/dL (7.0-18.7); Bilirubin, Total 0.3 mg/dL (0.2-1.2); Calc. Creatinine Clearance 0 mL/min (70-130); Calcium 7.6 mg/dL (7.8-10.44); Carbon Dioxide 20 mmol/L (22-29); Chloride 110 mmol/L (98-107); Estimated GFR 116; Globulin 3.6 g/dL (2.4-3.5); Glucose 121 mg/dL (70-105); Magnesium 2.3 mg/dL (1.6-2.6); Potassium 3.1 mmol/L (3.5-5.1); Protein, Total 6.1 g/dL (6.0-8.3); Sodium 140 mmol/L (136-145)
[2024-03-28] MEDS ORDERED: Calcium Gluc 4.6 MEQ/10 ML (100 MG/ML) ONE (07:59)
== END 2024-03-28 09:00 | disposition home or self-care (01) ==
LOC: MADERS 23:58
DX: J18.9 Pneumonia, unspecified organism (principal); D64.9 Anemia, unspecified; E87.6 Hypokalemia; E83.42 Hypomagnesemia
CPT/HCPCS: 71046; 80053; 81001; 83605; 83735; 84703; 85025; 87040; 87428; 93005; 96365; 96366; 96367; 96375; J0456; J0612; J0696; J1885; J3475; J3480; J7030; J7050

== ENCOUNTER 2025-03-21 17:14 | Emergency (ER) | payer OTHER ==
[2025-03-21 18:24] LABS: #Basophils 0.1 thou/uL (0.0-0.2); #Eosinophils 0.2 thou/uL (0.0-0.7); #Lymphocytes 1.5 thou/uL (1.20-3.40); #Monocytes 0.7 thou/uL (0.11-0.59); #Neutrophils 7.7 thou/uL (1.40-6.50); %Basophils 1.1 % (0.0-1.0); %Eosinophils 2.0 % (0.0-10.0); %Lymphocytes 14.5 % (21.0-51.0); %Monocytes 7.1 % (0.0-10.0); %Neutrophils 75.4 % (42.0-75.0); Hematocrit 38.6 % (36.0-47.0); Hemoglobin 12.1 g/dL (12.0-16.0); Mean Corpuscular Hemoglobin 28.6 pg (27.0-31.0); Mean Corpuscular Volume 91.5 fl (78.0-98.0); Platelet Count 304 10x3/uL (130-400); Red Blood Cell (RBC) Count 4.22 mill/uL (4.20-5.40); White Blood Cell (WBC) Count 10.2 10x3/uL (4.8-10.8)
[2025-03-21 18:38] LABS: ALT (SGPT) 21 U/L (Less than 34); AST (SGOT) 30 U/L (11-34); Acetaminophen Less than 10 mcg/mL (Less than 10); Albumin 4.3 g/dL (3.1-4.5); Alkaline Phosphatase 83 U/L (40-110); Anion Gap 16 mmol/L (10-20); BUN (Urea Nitrogen) 9 mg/dL (7.0-18.7); Bilirubin, Total 1.0 mg/dL (0.3-1.2); Calc. Creatinine Clearance 0 mL/min (70-130); Calcium 9.4 mg/dL (7.8-10.44); Carbon Dioxide 20 mmol/L (22-29); Chloride 108 mmol/L (98-107); Globulin 3.6 g/dL (2.4-3.5); Glucose 95 mg/dL (70-105); Potassium 3.2 mmol/L (3.5-5.1); Salicylate Less than 8.0 mg/dL (Less than 8.0); Sodium 141 mmol/L (136-145)
[2025-03-21 19:44] LABS: Glucose, Urine (Dipstick) Negative (Negative); Leukocyte Negative (Negative); Protein, Urine (Dipstick) Trace mg/dL (Neg-Trace); Specific Gravity, Urine 1.025 (1.005-1.030)
[2025-03-21 19:49] LABS: Bacteria/HPF Rare-Few HPF (None Seen); CAUTI Indications for Culture Alt mental st,lethar; Mucous/LPF 1+ LPF (<2+); RBC/HPF 0-3 HPF (0-3); Urine Culture Reflex No No; WBC/HPF 0-3 HPF (0-3)
[2025-03-21 19:52] LABS: Cocaine Metabolite Screen Negative (Negative); THC/Cannabinoid Screen Negative (Negative); Tricyclic Screen Negative (Negative)
[2025-03-21 20:00] LABS: Pregnancy Test - Urine (BHCG) Negative (Negative); Pregu Control Background? CLEAR/WHITE (CLR/WHITE); Pregu Control Bar Appear? YES (CONTROL BAR)
== END 2025-03-21 21:17 | disposition home or self-care (01) ==
LOC: MADERS 17:14
DX: R45.851 Suicidal ideations (principal); F32.A Depression, unspecified
CPT/HCPCS: 36415; 71046; 80053; 80306; 80307; 81001; 81025; 84443; 85025; 93005